=== PATIENT | male | born 1965 | race Caucasian/White ===

== ENCOUNTER 2016-12-03 10:47 | Emergency (ER) ==
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
[2016-12-03 11:24] VITALS: BP 181/110
[2016-12-03] MEDS ORDERED: PRINIVIL PO ONE (11:24)
[2016-12-03] MEDS ORDERED: DILANTIN PO ONE (11:24)
== END 2016-12-03 11:53 | disposition home or self-care (01) ==
LOC: ED 10:47
DX: Z48.01 Encounter for change or removal of surgical wound dressing (principal); I10 Essential (primary) hypertension; G40.909 Epilepsy, unspecified, not intractable, without status epilepticus; F17.210 Nicotine dependence, cigarettes, uncomplicated; S01.01XD Laceration without foreign body of scalp, subsequent encounter; V89.2XXD Person injured in unspecified motor-vehicle accident, traffic, subsequent encounter

== ENCOUNTER 2018-11-14 17:01 | Inpatient (IN) ==
--- NOTE | 2018-11-14 18:58 | PROVIDER DOCUMENTATION ---
This chart was entered by Gricel Hazel Scribe, acting as scribe for Yonis Tobar CRNP. HPI-Musculoskeletal Pain/Inj - GENERAL Chief Complaint: Back Pain Stated Complaint: EXTREMITY PAIN, NO BM Time Seen by Provider: 11/14/18 18:18 Source: patient - HX OF PRESENT ILLNESS-MUSKULOSKELTAL Nature of Presenting Problem: 52 yom presents to ed w/ back pain in lower back. pt is very yellow in complexion and eyes. pt has hx of seizures, and chronic lower back pain. 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 Major Childhood Illnesses: reports: denies history Cardiovascular: reports: denies history Respiratory: reports: denies history Gastrointestinal: reports: denies history Obstetrical/Gynecological: reports: denies history Genitourinary: reports: denies history Musculoskeletal: reports: chronic pain (lower back) Neurological: reports: Seizures/Epilepsy Endocrine/Immune: reports: denies history Other Conditions: reports: denies history - PRIOR SURGERIES/PROCEDURES Surgical/Procedure History: reports: none - IMMUNIZATION STATUS Childhood Immunizations: See Nurse Assessment Flu Vaccine: See Nurse Assessment - FAMILY HISTORY Family History: reviewed, not pertinent - SOCIAL HISTORY Smoking: cigarettes, greater than 1 pack/day Provider spent 3-5 mins advising pt. on dangers of tobacco.: Discussed manners to quit use, and f/u contacts for add'l counseling. Substance Use: none/never Physical Exam-Injury Related - Physical Exam-Injury Related Initial Vital Signs Reviewed: Yes General Appearance: appears well, alert, no apparent distress Eyes: PERRL/EOMI, scleral icterus. negative: pale conjunctivae, photophobia, sunken eyes Head, Ears, Nose, Mouth & Throat: normocephalic/atraumatic, moist mucous membranes, normal ENT inspection Neck: non-tender, full range of motion, supple, normal inspection Respiratory: chest non-tender, lungs clear, normal breath sounds Cardiovascular: normal peripheral pulses, regular rate, rhythm, no edema, no gallop, no JVD, no murmur Chest/Breast: deferred Abdominal Exam: normal bowel sounds, soft, tenderness (luq) Male Genitalia: deferred Rectal Exam: deferred Hemoccult Exam: deferred Lymphatic: no adenopathy Back Exam: CVA tenderness. negative: decreased range of motion, ecchymosis Extremity: normal range of motion, non-tender Integumentary: warm/dry, jaundice Neurologic: test development engineer II-XII nml as tested, grossly normal Psych/Mental Status: normal mood/affect, normal thought content, normal thought process, oriented x 3 Progress - PLAN OF CARE/RESULTS Progress/Plan/Lab Results: Vital Signs - 8 hr 11/14/18 17:18 11/14/18 18:47 Temperature 98 F 98.8 F Pulse Rate 103 H 97 H Respiratory Rate 18 16 Blood Pressure 118/80 141/67 O2 Sat by Pulse Oximetry 97 98 Laboratory Results - last 24 hr 11/14/18 11/14/18 11/14/18 18:43 18:43 18:43 WBC RBC Hgb Hct MCV MCH MCHC RDW Std Deviation Plt Count MPV Immature Gran % (Auto) Neut % (Auto) Lymph % (Auto) Mcmullen % (Auto) Eos % (Auto) Baso % (Auto) Immature Gran # (Auto) Neut # (Auto) Lymph # (Auto) Mcmullen # (Auto) Eos # (Auto) Baso # (Auto) Sodium 124 L Potassium 3.7 Chloride 74 L Carbon Dioxide 27 Anion Gap 23 BUN 13 Creatinine 0.7 Estimated GFR/1.73 m2 > 60 BUN/Creatinine Ratio 19 Glucose 73 Calculated Osmolality 248 Calcium 8.4 L Total Bilirubin 17.10 H AST 368 H ALT 96 H Alkaline Phosphatase 157 H Ammonia 61 H Creatine Kinase 133 Total Protein 7.0 Albumin 3.3 L Globulin 4.0 Albumin/Globulin Ratio 1.0 Lipase 38 11/14/18 19:14 WBC 7.63 RBC 3.65 L Hgb 12.8 L Hct 34.3 L MCV 94.0 MCH 35.1 H MCHC 37.3 H RDW Std Deviation 14.2 Plt Count 51 L MPV Not Reportable Immature Gran % (Auto) 0.5 Neut % (Auto) 81.3 H Lymph % (Auto) 6.7 L Mcmullen % (Auto) 11.4 H Eos % (Auto) 0.1 Baso % (Auto) 0.0 Immature Gran # (Auto) 0.04 Neut # (Auto) 6.20 Lymph # (Auto) 0.51 L Mcmullen # (Auto) 0.87 H Eos # (Auto) 0.01 Baso # (Auto) 0.00 Sodium Potassium Chloride Carbon Dioxide Anion Gap BUN Creatinine Estimated GFR/1.73 m2 BUN/Creatinine Ratio Glucose Calculated Osmolality Calcium Total Bilirubin AST ALT Alkaline Phosphatase Ammonia Creatine Kinase Total Protein Albumin Globulin Albumin/Globulin Ratio Lipase Orders Category Date Time Status Saline Loc NOW Care 11/14/18 18:33 Active NPO Diet 11/14/18 20:36 Active CHEST-PORTABLE [RAD] Stat Exams 11/14/18 20:18 Ordered LUMBAR SPINE [RAD] Stat Exams 11/14/18 18:34 Completed US ABDOMEN-COMPLETE [US] Stat Exams 11/14/18 20:34 Ordered ALCOHOL BLOOD Stat Lab 11/14/18 20:34 Ordered AMMONIA [CHEM] Stat Lab 11/14/18 18:43 Completed CBC WITH ELECTRONIC DIFF [HEME] Stat Lab 11/14/18 19:14 Completed CK PROFILE [SP CHEM] Stat Lab 11/14/18 18:43 Completed COMPREHENSIVE METABOLIC PANEL [CHEM] Stat Lab 11/14/18 18:43 Completed DIRECT BILIRUBIN [CHEM] Stat Lab 11/14/18 20:37 Ordered Dilantin [PHENYTOIN] [TDM] Stat Lab 11/14/18 20:28 Ordered HEPATITIS PROFILE [HH] Stat Lab 11/14/18 20:28 Ordered LIPASE [CHEM] Stat Lab 11/14/18 18:[address] W/POSS RFLX CULT [URINALYSIS] Stat Lab 11/14/18 20:00 Received EKG [EKG] Stat Ther 11/14/18 20:17 Ordered Discussed results and plan of care with patient. Patient agrees with plan and verbalizes understanding. Result Diagrams: 11/14/18 19:14 11/14/18 18:43 - XRAY 1 XRAY Study: Lumbar Spine ([facility] [address] [address], [address], [place] [address] Department of Imaging Patient: JASON RICCI Date: 11/14/18MR#: [id number] : 1965ADM Status: REG ERAcct#: [id number] Age /Sex: 52/MRoom/Bed: Loc: P.ED Ordering Physician: Yonis Tobar Family Physician: None,PCP Reason for Procedure: pain Signed EXAM: LUMBAR SPINE 11/14/2018 HISTORY: pain TECHNIQUE: Lumbosacral spine with obliques six views COMMENT: There is curvature of the lumbar spine with convexity to the right. There is are osteophytes at multiple levels. The pedicles are intact. There is vacuum disc phenomenon at multiple levels and there is some loss of height anteriorly of the L2 vertebral body but this was also present on 04/03/2017. L5 is partially sacralized on the left. IMPRESSION : Degenerative disc changes. No evidence of acute bony disease. Electronically signed by Aris Joyce 11/14/2018 7:08 PM [id number] Interpreting Physician: Aris Joyce MD Dictated Date/Time: 1905 cc: Yonis Tobar; None,PCP) XRAY Interpretation: See note - CONSULTS/PCP/HOSPITALIST Notification #1 *Consult/PCP/Hospitalist*: Dr. Jackson Time Discussed: 20:31 Reason/Comments: Admit Consult Disposition: Admit Departure - Departure Date of Disposition Decision: 11/14/18 Time of Disposition Decision: 20:25 DIAGNOSIS: Elevated bilirubin, Jaundice, Thrombocytopenia, Elevated liver enzymes, Increased ammonia level, Hyponatremia Back pain Qualifiers: Back pain location: low back pain Chronicity: chronic Back pain laterality: unspecified Sciatica presence: without sciatica Qualified Code(s): M54.5 - Low back pain; G89.29 - Other chronic pain Disposition: ADMITTED INPATIENT 09 Certified Medical Emergency: Emergent Condition: Stable Referrals and Follow-Ups: None,PCP [Primary Care Provider] - - Critical Care Note This patient required my direct & personal management of CC.: Yes Total Time (mins): 45 Critical Care Statement: This patient required my direct personal management to treat or rule out processes, the absence of which, could potentiallly result in sudden, clinically significant life or limb threatening deterioration. Attestation - Physician/ FELICE Attestation Patient care was provided by Advanced Practice Provider:: Yes Advanced Practice Provider:: Ynois Tobar Advanced Practice Provider documentation review:: The Mid-level provider documentation, treatment plan and medical decision making was reviewed by the physician who agrees with all treatment and medical decision making by the MLP. The physician spent face to face time with patient:: No Advanced Practice Provider documentation review:: Supervising physician onsite and consulted in the evaluation and care of this patient. The physician did not have a face to face encounter with the patient. This chart was documented by the indicated scribe, (Gricel Hazel Scribe) and accurately reflects the services I performed and decisions made by me, Yonis Tobar CRNP, as attested by the provider's signature.
--- NOTE | 2018-11-14 19:10 | Diag Imaging Result Doc PS360 ---
EXAM: LUMBAR SPINE 11/14/2018 HISTORY: pain TECHNIQUE: Lumbosacral spine with obliques six views COMMENT: There is curvature of the lumbar spine with convexity to the right. There is are osteophytes at multiple levels. The pedicles are intact. There is vacuum disc phenomenon at multiple levels and there is some loss of height anteriorly of the L2 vertebral body but this was also present on 04/03/2017. L5 is partially sacralized on the left. IMPRESSION: Degenerative disc changes. No evidence of acute bony disease. Electronically signed by Aris Joyce 11/14/2018 7:08 PM
[2018-11-14 19:11] LABS: ESTIMATED GFR > 60
[2018-11-14 19:13] LABS: AGAP 23; ALBUMIN 3.3 g/dL (3.5-5.0); ALKALINE PHOSPHATASE 157 U/L (32-122); BUN 13 mg/dL (8-22); CALCIUM 8.4 mg/dL (8.8-10.2); CHLORIDE 74 mmol/L (98-107); CK PROFILE 133 U/L (24-204); COSMO 248; CREATININE 0.7 mg/dL (0.7-1.2); GLUCOSE 73 mg/dL (70-104); GOT 368 U/L (10-34); GPT 96 U/L (10-44); POTASSIUM 3.7 mmol/L (3.5-5.1); SODIUM 124 mmol/L (136-145); TCO2 27 mmol/L (25-35)
[2018-11-14 19:29] LABS: EOS# 0.01 X1000 (0.0-0.7); EOS% 0.1 % (0.0-10.0); HEMATOCRIT 34.3 % (42.0-52.0); HEMOGLOBIN 12.8 g/dL (14.0-18.0); IMM GRAN# 0.04 X1000 (0.0-0.04); IMM GRAN% 0.5 % (0.0-0.5); LYMPH# 0.51 X1000 (1.2-3.4); LYMPH% 6.7 % (20.5-51.1); MCH 35.1 PG (27-31); MCHC 37.3 g/dL (33-37); MONO# 0.87 X1000 (0.11-0.59); MONO% 11.4 % (1.7-9.3); NEUT% 81.3 % (42.2-75.2); PLT 51 X1000 (130-400); RBC 3.65 XMIL (4.7-6.1); RDW 14.2 % (11.5-14.5); WBC 7.63 X1000 (4.8-10.8)
[2018-11-14] MEDS ORDERED: NORCO-7.5 PO ONE (20:50)
[2018-11-14] MEDS ORDERED: NS 1,000 ML IV ONE (20:51)
[2018-11-14] MEDS ORDERED: ZOFRAN IV PRN (20:51)
[2018-11-14] MEDS ORDERED: MORPHINE IV PRN (20:51)
[2018-11-14 20:56] LABS: BILIRUBIN URINE 3+ (NEGATIVE); BLOOD URINE 1+ (NEGATIVE); COLOR AMBER; GLUCOSE URINE NEGATIVE (NEGATIVE); KETONE URINE TRACE mg/dL (NEGATIVE); LEUKOCYTES URINE 1+ (NEGATIVE); NITRITE URINE POSITIVE (NEGATIVE); PROTEIN URINE 1+(30 mg/dL) mg/dL (NEGATIVE); SP GRAVITY URINE 1.015; UROBILINOGEN URINE 4 mg/dL
[2018-11-14 20:58] LABS: URINE BACTERIA 1+ /HFP; URINE CAST NONE SEEN /LPF; URINE CRYSTAL NONE SEEN /HPF; URINE EPITHELIAL CELLS >10 /HPF (<10); URINE RBC <10 /HPF (<10); URINE SMALL ROUND CELLS TRANSITIONAL PRESENT; URINE WBC <10 /HPF (<10); URINE YEAST NONE SEEN /HPF
[2018-11-14 20:59] LABS: URINE SOURCE CLEAN CATCH
[2018-11-14 21:00] LABS: CLARITY VERY CLOUDY (CLEAR)
--- NOTE | 2018-11-14 21:06 | ED EKG INTERP ---
This chart was entered by Gricel Hazel Scribe, acting as scribe for Yonis Tobar CRNP. EKG Interpretation - EKG Time of EKG reading by physician:: 20:27 EKG Read and Signed by:: Yonis Tobar EKG Interpretation (*Must complete 3 of following elements*): Normal Rate: 88 Rhythm: normal sinus rhythm Henry: normal QRS: normal CA Interval: normal ST Wave: non-specific ST changes Attestation - Physician/ FELICE Attestation Patient care was provided by Advanced Practice Provider:: Yes Advanced Practice Provider:: Yonis Tobar Advanced Practice Provider documentation review:: The Mid-level provider documentation, treatment plan and medical decision making was reviewed by the physician who agrees with all treatment and medical decision making by the MLP. The physician spent face to face time with patient:: No Advanced Practice Provider documentation review:: Supervising physician onsite and consulted in the evaluation and care of this patient. The physician did not have a face to face encounter with the patient. This chart was documented by the indicated scribe, (Gricel Hazel Scribe) and accurately reflects the services I performed and decisions made by , Yonis Tobar CRNP, as attested by the provider's signature.
--- NOTE | 2018-11-14 21:47 | Diag Imaging Result Doc PS360 ---
EXAM: US ABDOMEN-COMPLETE 11/14/2018 HISTORY: abd pain TECHNIQUE: Abdominal ultrasound COMMENT: The liver is hyperechoic. The pancreas is obscured. There is sludge in the gallbladder. No pericholecystic fluid is present and there are no definite stones. There is no evidence of biliary dilatation the common bile duct measuring less than 5 mm. There is apparently pulsatile flow in the portal vein. The kidneys are without evidence of hydronephrosis or mass. The spleen is enlarged measuring over 14 cm. The aorta and inferior vena cava are not well demonstrated. There is no sonographic [place] sign. IMPRESSION: Probable cirrhosis with portal hypertension and splenomegaly. Sludge in the gallbladder. Electronically signed by Aris Joyce 11/14/2018 9:45 PM
--- NOTE | 2018-11-14 21:56 | Diag Imaging Result Doc PS360 ---
EXAM: CT ABD/PELVIS W/IV CONT ONLY 11/14/2018 HISTORY: elevated bilirubin TECHNIQUE: This exam was performed using automated exposure control, adjustment of mA or kV according to patient size, and/or use of iterative reconstruction technique. COMMENT: There is no evidence of acute disease in the visualized portion of the chest. The liver is enlarged and hypodense with some inhomogeneity. There is lobulation of the surface of the liver. The spleen is not enlarged. The adrenal glands are not enlarged. There is a splenule near the splenic hilus. The pancreas is not enlarged. There is periaortic celiac and periportal adenopathy with a periportal node measuring in excess of 19 mm. There are some apparent gastric varices. There are scattered colonic diverticula. There is some questionable mucosal thickening in the transverse colon. Small bowel is not distended. Pelvis: There are perirectal varices. There is sigmoid diverticulosis without evidence of acute diverticulitis. The appendix is not distended. There is free fluid in the rectovesical pouch. There is a right inguinal hernia containing a loop of small bowel. There is a fat-containing left inguinal hernia. There are degenerative changes in the lumbar spine. IMPRESSION: 1. Hepatomegaly with steatohepatitis versus cirrhosis. Adenopathy. Varices. Minimal ascites. No evidence of biliary obstruction. 2. Right inguinal hernia. 3. Diverticulosis coli. Electronically signed by Aris Joyce 11/14/2018 9:54 PM
--- NOTE | 2018-11-14 22:07 | EKG Report ---
Test Performed on : 11/14/2018 8:27:17 PM Test Reason : SDA Blood Pressure : / mmHG Vent. Rate : 088 BPM Atrial Rate : 088 BPM P-R Int : 136 ms QRS Dur : 086 ms QT Int : 388 ms P-R-T Axes : 065 037 062 degrees QTc Int : 469 ms Normal sinus rhythm. Possible Left atrial enlargement Borderline ECG No previous ECGs available Unconfirmed Result
[2018-11-15] MEDS: MORPHINE IV PRN ×5 (03:17→17:03)
[2018-11-15 06:36] LABS: AGAP 15; ALKALINE PHOSPHATASE 143 U/L (32-122); BUN 14 mg/dL (8-22); CHLORIDE 80 mmol/L (98-107); COSMO 248; CREATININE 0.5 mg/dL (0.7-1.2); DIRECT BILIRUBIN > 10.00 mg/dL (0.00-0.20); ESTIMATED GFR > 60; GLUCOSE 69 mg/dL (70-104); GOT 332 U/L (10-34); GPT 86 U/L (10-44); POTASSIUM 3.9 mmol/L (3.5-5.1); SODIUM 124 mmol/L (136-145); TCO2 29 mmol/L (25-35); TOTAL PROTEIN 6.4 g/dL (6.3-8.3)
--- NOTE | 2018-11-15 07:05 | Diag Imaging Result Doc PS360 ---
EXAM: CHEST-PORTABLE - 11/14/2018 HISTORY: admit TECHNIQUE: Portable chest COMPARISON: 11/17/2016 FINDINGS: Heart size is normal. The lungs appear clear. There is no pleural effusion or pneumothorax identified. IMPRESSION: No evidence of acute disease. Electronically signed by Fuad Felipe 11/15/2018 7:03 AM
[2018-11-15 11:08] LABS: INR 1.21; PROTIME 15.9 Seconds (11.0-16.0)
[2018-11-15 11:09] LABS: PTT 37.1 Seconds (22.3-41.8)
[2018-11-15] MEDS ORDERED: D5 NS 1,000 ML IV SCH (11:45)
[2018-11-15] MEDS ORDERED: LACTULOSE PO SCH (12:00)
[2018-11-15] MEDS: ZOSYN 3.375 GM in NS 50 ML IV SCH ×5 (13:36→23:42)
[2018-11-15] MEDS ORDERED: MORPHINE IV PRN (19:27)
[2018-11-15] MEDS: LACTULOSE PO SCH ×2 (19:40→23:15)
[2018-11-15] MEDS: KEPPRA PO SCH ×2 (19:41→23:15)
--- NOTE | 2018-11-15 23:10 | HISTORY AND PHYSICAL ---
CHIEF COMPLAINT: back pain. HISTORY OF PRESENT ILLNESS: This is a 52-year-old gentleman with a history of seizures and chronic low back pain. He presented to the emergency room complaining of increasing back pain needing pain medications. On exam skin and sclerae are jaundiced. His workup revealed a total bilirubin of 17, direct bilirubin greater than 10 with AST 368, ALT 96, as well as ammonia of [address] of the abdomen and pelvis revealed steatohepatitis versus cirrhosis, adenopathy, varices, gastric and perirectal had no evidence of biliary obstruction. Abdominal ultrasound revealed probable cirrhosis with portal hypertension and splenomegaly. The patient denies any history of liver disease. He states he was not aware that he was jaundiced, nor had anyone mentioned this to him. PAST MEDICAL HISTORY: Seizures, chronic back pain. PAST SURGICAL HISTORY: Denies. SOCIAL HISTORY: Smokes a pack a day. He drinks 2 to 3 beers a day. He denies illicit drug use. ALLERGIES: No known drug allergies. HOME MEDICATIONS: None. REVIEW OF SYSTEMS: Discussed with patient with pertinent positives stated in the HPI. He denied any syncope, dizziness, chest pain, palpitations, any shortness of breath, cough, fever, chills, any night sweats, persistent cough, any nausea, vomiting, diarrhea, constipation , any black or bloody vomitus or stools, hematuria, dysuria, frequency urgency. PHYSICAL EXAMINATION: GENERAL: This is a 52-year-old gentleman who is actually walking around the room in no distress. VITAL SIGNS: Blood pressure is 123/63 with a heart rate of 87, respirations are 18, temperature is 98.1 degrees oral, room air saturations are 98 to 100 percent. HEENT: Pupils are equal, round, react to light. EOMs are intact. Sclerae are icteric. Head is normocephalic, atraumatic. Mucous membranes are moist. NECK: Supple with trachea midline. CARDIOVASCULAR: Regular rate and rhythm. S1 and S2 appreciated. He has no lower extremity edema. Peripheral pulses are palpable x4 extremities. PULMONARY: Breath sounds are clear with no increased work of breathing noted. Chest rises and falls symmetric with respiration. ABDOMEN: Distended. It is nontender with organomegaly felt right upper quadrant. He is noted to have asterixis with right hand greater than left. SKIN: Warm and dry, jaundice. LABS: WBC is 7.6 with hemoglobin 12.8, hematocrit 34.3 and platelets of 51, 000. His sodium is 124 with potassium 3.7, BUN is 13 with a creatinine 0.7, total bilirubin is 17 with direct bilirubin greater than 10, AST 368, ALT 96, alkaline phosphatase is 157, his ammonia level 61. Blood alcohol is 50. Abdominal ultrasound revealed probable cirrhosis with portal hypertension and splenomegaly. Abdominal CT revealed hepatomegaly with steatohepatitis versus cirrhosis, adenopathy, gastric and perirectal varices. No evidence of biliary obstruction, right inguinal hernia and diverticulosis. Chest x-ray revealed no evidence of acute disease. ASSESSMENT AND PLAN: This is a 52-year-old gentleman who is sitting up at the bedside in no distress. 1. Low back pain, chronic. 2. Elevated liver enzymes. 3. Elevated bilirubin. 4. Elevated ammonia. 5. Hyponatremia. PLAN: He has been admitted to the medical-surgical floor at [facility] and placed on telemetry which will continue. He has been NPO. blood sugars have been 73 and 69, will start IV fluids of D5 normal saline. We will monitor for sepsis given low blood sugars in the setting of liver failure. Will repeat an ammonia level as well as CBC and CMP. Start lactulose, blood cultures, urine cultures have been obtained, we will start Zosyn q.6 hours. I did discuss the patient with Dr. Montilla in Gastroenterology who reviewed orders and also added a CA 19-9 with his lab work. We will transfer the patient to [facility] for GI following. Further treatments pending hospital course. Dictated by VIPIN Wade for Mark Jackson MD This chart was documented by, VIPIN Wade and accurately reflects the services performed, treatment plan and medical decisions as attested by the providers signature Mark Jackson MD. cc: VIPIN Wade MD [facility]
[2018-11-15] MEDS: D5 NS 1,000 ML IV SCH ×2 (23:15→23:42)
[2018-11-15] MEDS: ATIVAN IV PRN (23:42)
--- NOTE | 2018-11-16 02:42 | HISTORY AND PHYSICAL ---
ADDENDUM: Patient seen and examined by myself. He is noted to have hyponatremia. He has cirrhosis of undetermined age or cause. The patient has not really been following up with anyone. Denies any knowledge of liver damage. He has marked hyperbilirubinemia. He is admitted to [place] waiting for a bed to be transferred to [facility] for GI. Unfortunately, currently there are no beds available at [facility], [place], [place], [place] or [facility]. cc: Mark Jackson MD
[2018-11-16] MEDS: MORPHINE IV PRN ×5 (04:08→23:29)
[2018-11-16] MEDS: ZOSYN 3.375 GM in NS 50 ML IV SCH ×3 (05:31→18:05)
[2018-11-16] MEDS: ATIVAN IV PRN (06:13)
[2018-11-16 06:34] LABS: HEMOGLOBIN 11.7 g/dL (14.0-18.0); MCH 35.6 PG (27-31); MCHC 35.5 g/dL (33-37); MCV 100.3 FL (81-99); MPV 12.8 FL (7.4-10.4); RBC 3.29 XMIL (4.7-6.1); RDW 14.7 % (11.5-14.5); WBC 5.28 X1000 (4.8-10.8)
[2018-11-16 06:49] LABS: MAGNESIUM 1.6 mg/dL (1.5-2.7); PHOSPHORUS 1.3 mg/dL (2.7-4.5)
[2018-11-16 06:53] LABS: AGAP 15; ALB/GLOB RATIO 0.9; ALKALINE PHOSPHATASE 129 U/L (32-122); BUN 15 mg/dL (8-22); CALCIUM 7.8 mg/dL (8.8-10.2); CHLORIDE 87 mmol/L (98-107); COSMO 264; CREATININE 0.7 mg/dL (0.7-1.2); ESTIMATED GFR > 60; GLUCOSE 107 mg/dL (70-104); GOT 295 U/L (10-34); GPT 77 U/L (10-44); SODIUM 131 mmol/L (136-145); TCO2 29 mmol/L (25-35); TOTAL PROTEIN 6.2 g/dL (6.3-8.3)
[2018-11-16 06:59] LABS: TOTAL BILIRUBIN 16.02 mg/dL (0.20-1.00)
[2018-11-16] MEDS: LACTULOSE PO SCH ×2 (09:59→22:03)
[2018-11-16] MEDS: KEPPRA PO SCH ×2 (09:59→22:03)
[2018-11-16 15:09] LABS: TOTAL IRON 114 ug/dL (53-167)
[2018-11-16] MEDS: M.V.I.-12 10 ML, FOLIC ACID 1 MG, MAGNESIUM SULFATE 1 GM, THIAMINE 100 MG in NS 1,000 ML IV SCH (15:10)
[2018-11-16] MEDS: PROTONIX IV SCH (15:10)
[2018-11-16] MEDS: THIAMINE 100 MG in NS 50 ML IV SCH (15:10)
[2018-11-16] MEDS ORDERED: POTASSIUM PHOSPHATE 30 MMOL in NS 250 ML IV ONE (15:18)
[2018-11-16 15:20] LABS: UNBOUND IRON 1 ug/dL (112-346)
[2018-11-16 16:05] LABS: IRON SATURATION 99 %; TIBC 115 ug/dL
[2018-11-16] MEDS: LIBRIUM PO SCH ×2 (18:05→22:03)
[2018-11-16] MEDS: ZOFRAN IV PRN (23:36)
[2018-11-17] MEDS: PROTONIX IV SCH ×2 (01:05→13:14)
[2018-11-17] MEDS: ZOSYN 3.375 GM in NS 50 ML IV SCH ×5 (01:05→23:58)
[2018-11-17] MEDS: SODIUM CHLORIDE 0.9% INJ SCH ×2 (01:05→13:14)
[2018-11-17] MEDS: D5 NS 1,000 ML IV SCH ×3 (01:05→04:52)
--- NOTE | 2018-11-17 01:07 | PROGRESS NOTE ---
DATE: 11/16/2018 SUBJECTIVE: Patient is lying comfortably in bed, he is confused. He is likely encephalopathic. So far 1 bowel movement today but if I do not have 2 or 3 bowel more bowel movements likely I will increase the dose of the lactulose. He is oriented to person. He knows he is in [place], he knows this is the hospital, he does not remember the name of the hospital though, he is not oriented to time and for him the President is Domenic. OBJECTIVE: Vital Signs: Temperature 98.1 degrees, pulse 79, respiratory rate 20, blood pressure 124/78, oxygen saturation 98 on room air. HEENT: Head normocephalic. No trauma. PERRLA. Icteric sclerae. Neck: Supple. No JVD. Central trachea. Chest: Clear to auscultation. No wheezing, no rales. Abdomen: Soft, protuberant, mild to moderately distended, positive bowel sounds, possible ascites. Extremities: No edema, no clubbing, no cyanosis. Neurological: The patient is alert and oriented x1 to person, he knows he is in the hospital, he does not remember what kind of hospital this is, he is able to recognize family members at the bedside. He is following commands on and off, he is not answering some of my simple questions. LABORATORY: WBC 5.2, hemoglobin 11.7, hematocrit 33, platelets 49,000, sodium 131, potassium 3, chloride 87, bicarbonate 15, BUN 0.7, glucose 107, calcium 7.8, phosphorus 1.3. ASSESSMENT AND PLAN: 1. Likely hepatic encephalopathy, as per the brother he has been more sleepy at home than normal and he has been confused, this patient is a heavy drinker even though he states that he drinks every were from 2 to 3 beers the brother said at the bedside he drinks way more than that, not only beers but also vodka, his brother has been living with him for about 5 years and since then the patient has been drinking heavily, at this moment his skin is jaundiced, his bilirubin is elevated at 16 with the AST, ALT and alkaline phosphatase are elevated as well coma, ammonia level is high and he is thrombocytopenic, likely this patient has liver cirrhosis. 2. Possible liver cirrhosis, we will also ask for more lab work to rule out any other condition including hepatitis, likely this is an alcoholic liver cirrhosis but I will wait for the evaluation and recommendations of Gastroenterology Department. 3. Thrombocytopenia likely secondary to liver injury. 4. Chronic low back pain, apparently as per the brother he has some degenerative disease, he has been placed on morphine as needed which I will decrease from 2 mg q.4 hours to 1 mg q.4 hours. 5. Elevated liver enzymes as per #1. 6. Elevated bilirubin as per #1. 7. Elevated ammonia likely secondary to liver cirrhosis. Continue with lactulose, so far 1 bowel movement. 8. Hyponatremia getting better. Continue with same management. 9. Hypokalemia. I will replace the potassium. 10. Hypophosphatemia. We will replace the phosphorus. cc: Oleg Lorenzana MD
[2018-11-17] MEDS: LIBRIUM PO SCH ×4 (03:36→20:14)
[2018-11-17] MEDS: MORPHINE IV PRN ×3 (03:36→20:13)
[2018-11-17] MEDS: ZOFRAN IV PRN ×2 (03:36→20:14)
[2018-11-17] MEDS: ATIVAN IV PRN ×4 (04:28→22:36)
--- NOTE | 2018-11-17 06:17 | GASTROENTEROLOGY CONSULTATION ---
DATE: 11/16/2018 ATTENDING PHYSICIAN: Dr. Valladares. PRIMARY CARE DOCTOR: None. REASON FOR CONSULTATION: Jaundice. HISTORY OF PRESENT ILLNESS: Mr. Osorio is a 52-year-old male who was admitted on 11/14/2018 to [facility] for back pain. He had labs and imaging done which showed evidence of jaundice with a total bilirubin of 17 and elevated liver enzymes. He had elevated ammonia level and he also had a blood alcohol level of 50. He had imaging done in the form of CT of the abdomen and pelvis which showed: 1. Hepatomegaly with steatohepatitis versus cirrhosis. 2. Adenopathy in the periportal area and paraaortic/celiac area with largest periportal node measuring 19 mm. 3. Minimal ascites. 4. No evidence of biliary obstruction. 5. Right-sided inguinal hernia. 6. Diverticulosis coli. 7. Perirectal varices. 8. Degenerate changes in the lumbar spine. The patient was then transferred to [facility]. I saw the patient. The patient acknowledges drinking about 4 to 6 beers a day, doing it for more than 15 years. His last drink was on the day before admission. He denies any vomiting blood or passing blood in the stools. He denies any previous history of liver disease. He denies any family history of liver disease. He has not seen a physician for a while. PAST MEDICAL HISTORY: Seizures, chronic back pain, alcoholism. PAST SURGICAL HISTORY: None. SOCIAL HISTORY: He smokes more than 1 pack a day, has done it for more than 2 decades. Drinks about 4 to 6 beers a day for more than 15 years. He denies any illicit drug abuse. He lives with his brother. ALLERGIES: No known drug allergies. MEDICATIONS IN THE HOSPITAL: Include multivitamin once daily, Librium 25 mg p.o. q.6 hours, dextrose normal saline at 75 mL per hour, lactulose 30 mL p.o. b.i.d., Keppra, Ativan, morphine, Zofran, Protonix IV b.i.d., Zosyn, potassium phosphate, and thiamine 100 mg IV once daily. He has currently NPO. REVIEW OF SYSTEMS: He denies any current fevers, rigors, chills, chest pain, shortness of breath, or dyspnea. He denies any vomiting blood or passing blood in the stools. He does complain of back pain. PHYSICAL EXAMINATION: Vital Signs: Temperature 98.6 degrees, pulse rate of 84, respiratory rate of 15, blood pressure 120/76, saturating 98% on room air. Body weight of 155 pounds 4 ounces. BMI 24.3 kg/m2. General Appearance: This is a moderately built, moderately nourished, lying in bed, in no acute distress. HEENT: Pale conjunctivae. Icteric sclerae. Pupils equal, reactive to light. Neck: Supple. Abdomen: Protuberant. Tympanic on percussion. No rebound. No guarding. Mild discomfort in the epigastric region. Extremities: No cyanosis, clubbing, and he has mild lower extremity edema noted. Neurologic: He is awake, alert, and oriented x3. LABS: Hemoglobin and hematocrit of 11.7 and 33, white count of 5.28, platelet count of 49,000, MCV of 100.3. Sodium of 139, potassium 3, chloride of 87, bicarb 29, anion gap 13, BUN of 15, creatinine 0.7, glucose of 107, calcium 7.8, phosphorus 1.3, magnesium 1.6. Total bilirubin is 16.02, direct of more than 10, AST 295, ALT 77, alkaline phosphatase is 129, total protein is 6.2, albumin of 3, ammonia of 62, lipase of 38. Iron level of 114. Urinalysis showed cloudy, 1+ protein, 1+ blood, 3+ bilirubin, 1+ white cells, more than 10 epithelial cells. Tylenol level is 1.9. Phenytoin level of 0.8. Blood alcohol of 50. Blood cultures x2 are currently pending. Urine culture showed no growth. Imaging in the form of CT scan as described in the HPI. Abdominal ultrasound done which showed liver is hyperechoic. Sludge in the gallbladder. No evidence of biliary dilation. Common bile duct measuring 5 mm. Spleen is measuring 14 cm. IMPRESSION AND PLAN: 1. Elevated liver enzymes and jaundice. 2. History of alcoholism. 3. Anemia. 4. Thrombocytopenia. 5. Elevated ammonia level. 6. Electrolyte imbalance. 7. Back pain. 8. Diverticulosis of the colon. RECOMMENDATIONS: 1. We will check on chronic liver disease workup. It is very likely his elevated liver enzymes and jaundice are secondary to alcoholic liver disease. We will continue to watch his liver enzymes. We will also watch his blood counts including platelet count. We will give him a dose of vitamin K. His INR is around 1.2. We will watch him for delirium tremens. We will continue multivitamin, thiamine, banana bag. 2. Gastrointestinal prophylaxis with PPIs b.i.d. 3. The patient was counseled to quit alcohol completely. The patient was also counseled to quit smoking completely. 4. The above plan was discussed with the patient and all questions were answered. Please call us with any further questions. cc: MD Oleg Salter MD
[2018-11-17 06:54] LABS: BASO# 0.01 X1000 (0.0-0.2); BASO% 0.2 % (0.0-0.8); EOS# 0.04 X1000 (0.0-0.7); EOS% 0.7 % (0.0-10.0); HEMATOCRIT 35.1 % (42.0-52.0); HEMOGLOBIN 12.1 g/dL (14.0-18.0); IMM GRAN# 0.05 X1000 (0.0-0.04); IMM GRAN% 0.9 % (0.0-0.5); LYMPH# 0.62 X1000 (1.2-3.4); LYMPH% 11.3 % (20.5-51.1); MCHC 34.5 g/dL (33-37); MCV 101.4 FL (81-99); MONO# 0.96 X1000 (0.11-0.59); MONO% 17.5 % (1.7-9.3); MPV 12.7 FL (7.4-10.4); NEUT# 3.81 X1000 (1.4-6.5); NEUT% 69.4 % (42.2-75.2); PLT 65 X1000 (130-400); RBC 3.46 XMIL (4.7-6.1); RDW 15.3 % (11.5-14.5); WBC 5.49 X1000 (4.8-10.8)
[2018-11-17 07:26] LABS: AGAP 15; ALB/GLOB RATIO 1.1; ALKALINE PHOSPHATASE 121 U/L (32-122); BUN 11 mg/dL (8-22); CALCIUM 7.4 mg/dL (8.8-10.2); CHLORIDE 94 mmol/L (98-107); COSMO 275; CREATININE 0.4 mg/dL (0.7-1.2); ESTIMATED GFR > 60; GLUCOSE 96 mg/dL (70-104); GOT 299 U/L (10-34); GPT 79 U/L (10-44); POTASSIUM 3.2 mmol/L (3.5-5.1); SODIUM 138 mmol/L (136-145); TCO2 29 mmol/L (25-35); TOTAL PROTEIN 5.7 g/dL (6.3-8.3)
[2018-11-17 07:27] LABS: TOTAL BILIRUBIN 17.87 mg/dL (0.20-1.00)
[2018-11-17] MEDS: LACTULOSE PO SCH ×2 (09:05→17:48)
[2018-11-17] MEDS: KEPPRA PO SCH ×2 (09:06→20:13)
[2018-11-17] MEDS ORDERED: KLOR-CON PO ONE (11:01)
[2018-11-17 12:40] LABS: HEPATITIS PROFILE ACUTE SEE COMMENTS
[2018-11-17] MEDS ORDERED: LACTULOSE PO SCH (13:00)
--- NOTE | 2018-11-17 14:26 | PROGRESS NOTE ---
DATE: 11/17/2018 SUBJECTIVE: This patient is lying comfortably in bed, he is sleepy, but arousable. He is answering some of my questions but slow. He seems to be more oriented today. So far he has been having a couple bowel movement for the past 2 days. I do not have a record of any bowel movement today, I have increased the dose of the lactulose from twice a day to 3 times a day. He has been placed on a liquid diet and I instructed the nurse to give him some food only if he is awake, we will try some ice chips first. We will continue with Librium which we will decrease slowly. OBJECTIVE: Vital signs: Temperature 97.8 degrees, pulse 79, respiratory rate 16, blood pressure 110/83, oxygen saturation 99 on room air. HEENT: Head normocephalic. No trauma. PERRLA. Icteric sclerae. Neck: Supple. No JVD. Central trachea. Chest: Clear to auscultation. No wheezing, no rales. Abdomen: Soft, protuberant, mild to moderate distended, positive bowel sounds, possible ascites. Extremities: No edema, no clubbing, no cyanosis. Neurological: The patient is alert, he is oriented x2 today, he knows he is in the hospital. He does not remember the name of this hospital though, he believes this is [facility]. He is following commands more consistently today. LABORATORY: WBC 5.4, hemoglobin 12.1, hematocrit 35.1, platelets 65,000, sodium 138, potassium 3.2, chloride 94, bicarbonate 11, BUN 0.4, glucose 96, calcium 7.4, bilirubin 17.8, AST 299, ALT 79, alkaline phosphatase 121, albumin 3. ASSESSMENT AND PLAN: 1. Likely hepatic encephalopathy, as per the patient's brother he is a heavy drinker, he not only drinking beer but also other drinks like vodka, as per the brother he has been living with him for the past 5 years and since then he has been drinking heavily daily. His skin is jaundiced. His bilirubin is elevated as well as the AST, ALT, ammonia level is been high and he is thrombocytopenic. 2. Alcoholic hepatitis with possible liver cirrhosis. Will continue to monitor. Continue with same management. He is getting IV fluids especially a banana bag, gastroenterology on board. 3. Thrombocytopenia likely secondary to liver injury. 4. Chronic low back pain. Apparently as per the brother he has some degenerative disease. He has been placed on morphine as needed. 5. Elevated liver enzymes aware. 6. Elevated bilirubin aware. 7. Elevated ammonia aware. 8. Hyponatremia resolved. 9. Hypokalemia. I will replace the potassium today. cc: Oleg Lorenzana MD
[2018-11-17] MEDS: M.V.I.-12 10 ML, FOLIC ACID 1 MG, MAGNESIUM SULFATE 1 GM, THIAMINE 100 MG in NS 1,000 ML IV SCH (17:44)
[2018-11-17] MEDS: THIAMINE 100 MG in NS 50 ML IV SCH (17:44)
[2018-11-17] MEDS: TRENTAL PO SCH (17:52)
--- NOTE | 2018-11-17 17:57 | GASTROENTEROLOGY PROGRESS NOTE ---
DATE: 11/17/2018 Resting in bed. He is feeling the same. He denies any new complaints. He denies any nausea, vomiting, vomiting blood or passing blood in the stools. He is eating well.Vitals: Temperature 99 degrees, pulse of 89, respiratory 16, blood pressure 122/82 saturating 100% room air. General Appearance: Moderately nourished lying in bed in no acute distress. HEENT: Icteric sclerae, icteric skin, positive mild pallor. Neck: Is supple. Abdomen: Distention likely positive ascites. No rebound, guarding. Extremities: No cyanosis, clubbing . Neuro: He was sleepy was able to awake on commands and answer questions. LABS: His hemoglobin and hematocrit is 12.1 and 35.1, white count of 5.49, platelet count of 65,000, sodium 130, potassium 3.2, chloride 94, bicarb 20, anion gap 15, BUN of 11, creatinine 0.4, glucose of 210, calcium 74, total bilirubin 17.87 and AST 299, ALT 79, alkaline phosphatase 121, total protein 5.7, albumin of 3. His ammonia was 62 yesterday, CA-19-9 was 693 which is high. Hepatitis panel show positive hepatitis C antibody with the PCR is pending. IMPRESSION AND PLAN: 1. Alcoholic hepatitis. We will continue with current treatment, will continue follow liver enzymes. Will start on pentoxifylline 400 mg p.o. t.i.d. 2. Elevated CA 99. He will benefit from MRI of the abdomen and MRCP to evaluate pancreatic malignancy. 3. Hepatic encephalopathy with elevated ammonia. He will continue lactulose, will increase the lactulose 4 times daily. 4. Thrombocytopenia, continue follow for now. 5. Chronic back pain aware. 6. Electrolyte imbalance aware, will continue to watch that for now. 7. Gastrointestinal prophylaxis PPIs. 8. Will follow up on the chronic liver disease workup. 9. Continue to watch closely for alcohol withdrawal. Patient has a drinking history of heavy alcohol use. I counseled patient to quit alcohol completely and also counseled him to quit smoking completely. 10. The above plans with the patient and all questions answered. Please call us with any further questions. cc: Oleg Lorenzana MD
[2018-11-18] MEDS: LIBRIUM PO SCH ×4 (00:54→20:03)
[2018-11-18] MEDS: SODIUM CHLORIDE 0.9% INJ SCH ×2 (01:26→14:21)
[2018-11-18] MEDS: PROTONIX IV SCH ×2 (01:26→14:21)
[2018-11-18] MEDS: MORPHINE IV PRN ×3 (01:52→15:25)
[2018-11-18] MEDS: D5 NS 1,000 ML IV SCH ×3 (03:24→20:04)
[2018-11-18] MEDS: ZOSYN 3.375 GM in NS 50 ML IV SCH ×3 (05:55→20:04)
[2018-11-18 06:43] LABS: INR 1.29; PROTIME 17.1 Seconds (11.0-16.0)
[2018-11-18 06:44] LABS: PTT 40.9 Seconds (22.3-41.8)
[2018-11-18 06:52] LABS: BASO# 0.02 X1000 (0.0-0.2); BASO% 0.3 % (0.0-0.8); EOS# 0.05 X1000 (0.0-0.7); EOS% 0.8 % (0.0-10.0); HEMATOCRIT 32.1 % (42.0-52.0); HEMOGLOBIN 11.1 g/dL (14.0-18.0); IMM GRAN# 0.09 X1000 (0.0-0.04); IMM GRAN% 1.4 % (0.0-0.5); LYMPH# 0.85 X1000 (1.2-3.4); LYMPH% 13.4 % (20.5-51.1); MCH 35.1 PG (27-31); MCHC 34.6 g/dL (33-37); MCV 101.6 FL (81-99); MONO# 1.02 X1000 (0.11-0.59); MONO% 16.1 % (1.7-9.3); MPV 12.4 FL (7.4-10.4); NEUT# 4.31 X1000 (1.4-6.5); PLT 64 X1000 (130-400); RBC 3.16 XMIL (4.7-6.1); RDW 15.6 % (11.5-14.5); WBC 6.34 X1000 (4.8-10.8)
[2018-11-18 07:11] LABS: LYMPHS 22 % (21-51); MONO 2 % (1-9); SEGS 76 % (42-75)
[2018-11-18 07:14] LABS: AGAP 11; ALBUMIN 2.7 g/dL (3.5-5.0); ALKALINE PHOSPHATASE 114 U/L (32-122); BUN 8 mg/dL (8-22); CALCIUM 7.9 mg/dL (8.8-10.2); CHLORIDE 101 mmol/L (98-107); COSMO 278; CREATININE 0.5 mg/dL (0.7-1.2); ESTIMATED GFR > 60; GLUCOSE 175 mg/dL (70-104); GOT 285 U/L (10-34); GPT 79 U/L (10-44); MAGNESIUM 2.2 mg/dL (1.5-2.7); POTASSIUM 3.1 mmol/L (3.5-5.1); SODIUM 138 mmol/L (136-145); TCO2 26 mmol/L (25-35); TOTAL BILIRUBIN 19.04 mg/dL (0.20-1.00); TOTAL PROTEIN 5.5 g/dL (6.3-8.3)
[2018-11-18 07:15] LABS: PHOSPHORUS 0.7 mg/dL (2.7-4.5)
[2018-11-18] MEDS ORDERED: POTASSIUM PHOSPHATE 40 MMOL in NS 250 ML IV ONE (07:18)
[2018-11-18] MEDS: LACTULOSE PO SCH ×3 (09:51→18:20)
[2018-11-18] MEDS: KEPPRA PO SCH ×2 (09:51→20:04)
[2018-11-18] MEDS: TRENTAL PO SCH ×3 (09:51→18:20)
--- NOTE | 2018-11-18 10:41 | GASTROENTEROLOGY PROGRESS NOTE ---
DATE: 11/18/2018 SUBJECTIVE: Patient is resting in bed. He is slightly confused today. His ammonia was checked today, which is slightly high at 68. He has eaten few bites this morning. He has moved his bowels two days ago. His abdomen is slightly distended. He also does complain of discomfort in the abdomen. OBJECTIVE: Vital signs: Temperature 97.6 degrees, pulse of 77, respiratory 20, blood pressure 109/75, saturating 92% on room air. General Appearance: Moderately built, moderately nourished, lying in bed, currently a little sleepy. Was able to wake up on commands. Answers all questions. Positive pallor. Icteric sclerae. Icteric skin. Neck: Supple. Abdomen: Distended, question of ascites. No rebound or guarding. Extremities: No cyanosis or clubbing. Neurologic: He was sleepy. He was able to awake on command. Answers questions. He was disoriented to place. Was oriented to time and person. LABS: His hemoglobin and hematocrit is 11.1 and 32.1, white count of 6.34, platelet count of 64. INR 1.29, PT of 17.1, PTT of 40.9. Sodium 138, potassium 3.1, chloride 101, bicarb at 26, anion gap of 11, BUN of 8, creatinine 0.5, glucose of 135, calcium is 7.9, phosphorus 0.7, magnesium 2.2, total bilirubin is 19.04. AST 285, ALT 79, alkaline phosphatase is 114. Ammonia was 68. Total protein 5.5, albumin of 2.7. CA-19-9 was high at 693. Hepatitis panel positive hepatitis C antibody. PCR is currently pending. IMPRESSION AND PLAN: 1. Hepatic encephalopathy and elevated ammonia. We will keep her on lactulose 30 mL p.o. t.i.d. We will start on Xifaxan 550 mg p.o. b.i.d. 2. Abdominal distention. We need to evaluate for ascites. Today, the patient is scheduled for MRI and MRCP of the abdomen, and this can probably help us figure out where the abdominal distention is, because of ileus or ascites. 3. Elevated CA-19-9. Will check on magnetic resonance cholangiopancreatography, which was ordered for today. 4. Alcoholic hepatitis. Elevated bilirubin. 5. Thrombocytopenia. 6. Hypoalbuminemia. 7. Mild coagulopathy. This is part of the disease spectrum of chronic alcoholic liver disease. We will keep on daily liver enzyme checkups and keep him on pentoxifylline 400 p.o. t.i.d. 8. Alcoholism. Watch for delirium tremens. He is on Librium. His drowsiness can also be the Librium. This is day 3. We may have to cut down the dose and frequency of Librium. This is managed by the primary team. 9. He will continue on vancomycin once daily and thiamine once daily. His phosphorus will need to be replaced, and this is being done by the primary team. 10. Diverticulosis of the colon, aware. 11. Back pain. Aware. 12. The above plan of care was discussed with the patient and nursing staff. All questions were answered. Please call with any further questions. cc: MD Oleg Salter MD
--- NOTE | 2018-11-18 11:50 | PROGRESS NOTE ---
DATE: 11/18/2018 SUBJECTIVE: No big changes compared with yesterday. He is still sleepy, but arousable. He is answering most of my questions. He is not oriented to time today. He is following commands, and he has been tolerating a little bit better his diet. Hepatitis panel showed that this patient is positive for hepatitis C antibody. His CA 19-9 antigen is high. His potassium is still low, but we will replace it. Phosphorus level is also low, and I requested potassium phosphate for this patient. We will repeat a BMP and phosphorus today in the afternoon around 4 p.m. He is scheduled today to get an MRI of the abdomen because his CA 19-9 was elevated, and they will perform an MRCP to evaluate the possibility of hepatobiliary or pancreatic pathology. OBJECTIVE: Vital Signs: Temperature 97.6 degrees, pulse 77, respiratory rate 20, blood pressure 109/75, oxygen saturation 96% on room air. HEENT: Head normocephalic. No trauma. PERRLA. Icteric sclerae. Neck: Supple. No JVD. No masses. Central trachea. Chest: Clear to auscultation. No wheezing. No rales. Abdomen: Soft, protuberant. Moderately distended. Positive bowel sounds. Possible ascites. Extremities: No edema. No clubbing. No cyanosis. Neurological: The patient is sleepy, but arousable. Oriented x2. He is not oriented to time. He follows commands more consistently. LABORATORY DATA: WBC 6.3, hemoglobin 11.1, hematocrit 32.1, platelets 64,000. Sodium 138, potassium 3.1, chloride 101, bicarbonate 26, BUN 8, creatinine 0.5, glucose 175, calcium 7.9, phosphorus 0.7, magnesium 2.2, total bilirubin 19, AST 285, ALT 79, alkaline phosphatase, 114, ammonia level is 68, albumin 2.7. ASSESSMENT AND PLAN: 1. Likely hepatic encephalopathy. As per the patient's brother, he is a heavy drinker. He is not only drinking beer, but also other drinks like vodka. He has been living with his brother for about 5 years, and since then he has been drinking on a daily basis. His jaundice, bilirubin, as well as AST and ALT are elevated, ammonia level as well. We have a positive result that showed the CA 19-9 antigen elevated. We will get an MRI and MRCP today. 2. Positive result for hepatitis C. Gastroenterology Department following this patient closely. 3. Alcoholic hepatitis with possible liver cirrhosis. We will do an MRI today to rule out liver cirrhosis. Continue with the same management, especially the banana bag. Gastroenterology on board. 4. Positive result that showed CA 19-9 elevation, aware. Pending MRI/MRCP. 5. Thrombocytopenia, likely secondary to liver injury. 6. Chronic back pain Apparently, as per the brother, he has some degenerative disease. He has been placed on morphine as needed. 7. Possible alcohol withdrawal symptoms. This patient has been placed on Librium, which I have decreased the dose from 25 every 6 hours to 25 twice a day. Hopefully, we will decrease that slowly. 8. Elevated liver enzymes, aware. 9. Elevated bilirubin, aware. 10. Elevated ammonia level, aware. 11. Hyponatremia, resolved. 12. Hypokalemia with hypophosphatemia. I will give him potassium phosphate, and I will recheck the lab work in the afternoon. cc: Oleg Lorenzana MD
[2018-11-18] MEDS: THIAMINE 100 MG in NS 50 ML IV SCH (15:25)
[2018-11-18] MEDS: M.V.I.-12 10 ML, FOLIC ACID 1 MG, MAGNESIUM SULFATE 1 GM, THIAMINE 100 MG in NS 1,000 ML IV SCH (16:12)
[2018-11-18 16:36] LABS: AGAP 15; BUN 7 mg/dL (8-22); CALCIUM 8.1 mg/dL (8.8-10.2); CHLORIDE 99 mmol/L (98-107); COSMO 274; CREATININE 0.4 mg/dL (0.7-1.2); ESTIMATED GFR > 60; GLUCOSE 132 mg/dL (70-104); PHOSPHORUS 1.3 mg/dL (2.7-4.5); POTASSIUM 3.1 mmol/L (3.5-5.1); SODIUM 137 mmol/L (136-145); TCO2 23 mmol/L (25-35)
[2018-11-18] MEDS: ATIVAN IV PRN (21:25)
[2018-11-19] MEDS: LIBRIUM PO SCH ×4 (00:47→22:38)
[2018-11-19] MEDS: PROTONIX IV SCH ×2 (02:17→13:48)
[2018-11-19] MEDS: ZOSYN 3.375 GM in NS 50 ML IV SCH ×4 (02:17→20:43)
[2018-11-19] MEDS: SODIUM CHLORIDE 0.9% INJ SCH (02:17)
[2018-11-19] MEDS: D5 NS 1,000 ML IV SCH ×2 (02:23→13:48)
[2018-11-19 07:15] LABS: BASO# 0.01 X1000 (0.0-0.2); BASO% 0.1 % (0.0-0.8); EOS# 0.02 X1000 (0.0-0.7); EOS% 0.2 % (0.0-10.0); HEMOGLOBIN 11.3 g/dL (14.0-18.0); IMM GRAN% 1.1 % (0.0-0.5); LYMPH# 0.81 X1000 (1.2-3.4); LYMPH% 8.9 % (20.5-51.1); MCHC 34.2 g/dL (33-37); MCV 102.2 FL (81-99); MONO# 1.15 X1000 (0.11-0.59); MONO% 12.6 % (1.7-9.3); NEUT# 7.02 X1000 (1.4-6.5); NEUT% 77.1 % (42.2-75.2); PLT 65 X1000 (130-400); RBC 3.23 XMIL (4.7-6.1); RDW 16.1 % (11.5-14.5); WBC 9.11 X1000 (4.8-10.8)
[2018-11-19 07:23] LABS: HCV BY PCR SEE COMMENTS
[2018-11-19 07:56] LABS: AGAP 15; ALBUMIN 2.7 g/dL (3.5-5.0); ALKALINE PHOSPHATASE 121 U/L (32-122); BUN 6 mg/dL (8-22); CALCIUM 7.4 mg/dL (8.8-10.2); CHLORIDE 103 mmol/L (98-107); COSMO 277; CREATININE 0.4 mg/dL (0.7-1.2); ESTIMATED GFR > 60; GLUCOSE 97 mg/dL (70-104); GOT 289 U/L (10-34); GPT 83 U/L (10-44); MAGNESIUM 2.2 mg/dL (1.5-2.7); PHOSPHORUS 1.1 mg/dL (2.7-4.5); POTASSIUM 3.5 mmol/L (3.5-5.1); SODIUM 140 mmol/L (136-145); TCO2 22 mmol/L (25-35); TOTAL BILIRUBIN 19.41 mg/dL (0.20-1.00); TOTAL PROTEIN 5.4 g/dL (6.3-8.3)
[2018-11-19] MEDS: KEPPRA PO SCH ×2 (09:54→20:44)
[2018-11-19] MEDS: LACTULOSE PO SCH ×3 (09:54→20:43)
[2018-11-19] MEDS: TRENTAL PO SCH ×3 (09:54→20:44)
[2018-11-19] MEDS: MORPHINE IV PRN ×3 (09:54→22:42)
--- NOTE | 2018-11-19 10:00 | GASTROENTEROLOGY PROGRESS NOTE ---
DATE: 11/19/2018 SUBJECTIVE: No acute overnight events. Afebrile. Patient denies N/V/F, CP. He reports labored breathing, generalized weakness, and abdominal discomfort from distension. He had two nonbloody bowel movements yesterda. OBJECTIVE: Vital Signs: Temperature 97.6, heart rate 79, respiratory rate 18, blood pressure 85/59, O2 saturation 98% on room air GEN: awake, alert, oriented to self and place only, ill-appearing HEENT: icteric sclera, MMM NECK: no JVD or LAD CV: RRR, no murmurs PULM: increased WOB, CTA anteriorly ABD: distended, no tympany, BS present, bulging flanks, unable to appreciate fluid wave. mild diffuse TTP without rebound or guarding EXT: no c/c/e NEURO: moving all extremities symmetry, II-XII grossly intact, no asterixis SKIN: jaundiced LABS: Na 140 K 3.5 CO2 22 Cl 103 BUN 6 Cr 0.4 glucose 97 WBC 9.1 Hgb 11.3 plts 65K INR 1.29 Albumin 2.7 Tpro 5.4 Tbili 19.4 AST 289 ALT 83 ALP 121 A/P: Mr. Kalpesh Osorio is a 52 year old man with history of alcoholism admitted with newly diagnosed decompensated cirrhosis c/b hepatic encephalopathy and jaundice. He also appears to have a component of alcoholic hepatitis. Imaging on admission showed gallbladder sludge, splenomegaly, gastric varices, and minimal ascites. His Tbili continues to uptrend. No CBD dilation on CT or US. MRI/MRCP ordered Unclear indication for zosyn; recommend discontinuing antibiotics #Decompensated cirrhosis: MELD-Na 20, CP-C11 - Ascites: minimal on imaging; low Na diet - PSE: controlled on lactulose; titrate for 2-3 BMs daily; hold for >4 - HCC: US and CT negative for hepatoma; repeat q6mo; elevated CA19-9 MRI pending - EV: gastric varices on CT; will need EGD for varices screening; this can be done prior to discharge - OLT: not a candidate for OLT at his this time given recent alcohol use - IMM: recommend checked HAV/HBV IgG as outpatient; vaccinate if negative #Alcoholic hepatitis - On trental for renal protection - recommend high protein calorie diet; watch for refeeding syndrome #ETOH abuse - thiamine, folate, MVI - continue to career counselor on alcohol cessation #Thrombocytopenia: 2/2 to splenomegaly/cirrhosis #Anemia: stable; no overt bleeding; holding PPI given increase risk for cdiff and SBP #HCV: untreated Will follow with you. Please call with questions. ILIANA
[2018-11-19] MEDS ORDERED: SODIUM PHOSPHATE 35 MMOL in NS 250 ML IV ONE (13:59)
[2018-11-19] MEDS: ATIVAN IV PRN ×2 (15:12→22:04)
--- NOTE | 2018-11-19 15:35 | PROGRESS NOTE ---
DATE: 11/19/2018 SUBJECTIVE: The patient continues to be sleepy but arousable. Not oriented in time or place but in person only. Follows basic commands. OBJECTIVE: Vital Signs: Temperature 97.6 degrees, heart rate 86, respiratory rate 18, blood pressure 122/71, O2 saturation 97% on room air. General: This is a 52-year- old male, chronically ill-looking, very malnourished, lying in bed, in no acute distress. HEENT: Head is normocephalic, atraumatic. Mucous membranes dry. Very icteric. Conjunctivae pale, as well. Neck: No JVD noted. No carotid bruits. No lymphadenopathy. No thyromegaly. Cardiovascular: S1, S2 heard. No murmurs, gallops, or rubs. Regular rate and rhythm. Abdomen : Soft. Protuberant with moderate ascites. No organomegaly noted. Extremities: No clubbing, cyanosis, or edema. Peripheral pulses present in both legs. Neurological: Patient is sleepy, but arousable. Oriented to person only. Follows basic commands. LABORATORY DATA: White cell count 9.7, hemoglobin 11.3, hematocrit 33.0, platelets 65,000. BMP remarkable for creatinine 2.4, glucose 154, total bilirubin 19.41, AST 289, ALT 83. Phosphorus is 1.1. ASSESSMENT AND PLAN: 1. Hepatic encephalopathy. The patient is on lactulose and pentoxifylline. I think we will add rifaximin to his current treatment. 2. Hepatitis C. Gastroenterology following this patient. 3. Alcoholic hepatitis with liver cirrhosis. We were supposed to do an MRI of the abdomen yesterday, but apparently that exam was canceled because the patient was not cooperating. We have talked to him, and he said that he is going to try again. We will see what happens. 4. Thrombocytopenia related to alcoholic liver cirrhosis. We will continue to monitor his CBC. 5. Positive CA19-9 elevation. MRI and MRCP pending. 6. Hepatic encephalopathy. Ammonia level is elevated so we will continue with lactulose and rifaximin. 7. Hyponatremia, resolved. DISPOSITION: We will see what the MRI shows. We will follow recommendations from Gastroenterology. Addendum: We tried to get an MRI for second time. We used 2 dosis of Ativan IV to keep him calmed down but we were not successful. I am not going to try to get that exam done again. cc: Brian Ramachandran MD MTDD
[2018-11-19] MEDS ORDERED: ATIVAN IV ONE (15:37)
[2018-11-19] MEDS: THIAMINE 100 MG in NS 50 ML IV SCH (16:12)
[2018-11-19] MEDS: M.V.I.-12 10 ML, FOLIC ACID 1 MG, MAGNESIUM SULFATE 1 GM, THIAMINE 100 MG in NS 1,000 ML IV SCH (17:08)
[2018-11-19] MEDS: NEUTRA-PHOS PO SCH ×2 (18:22→20:44)
[2018-11-19] MEDS: XIFAXAN PO SCH (20:44)
[2018-11-19] MEDS: ZOFRAN IV PRN (23:18)
[2018-11-20] MEDS: D5 NS 1,000 ML IV SCH ×2 (00:43→12:10)
[2018-11-20] MEDS: ATIVAN IV PRN (02:41)
[2018-11-20] MEDS: ZOSYN 3.375 GM in NS 50 ML IV SCH (02:41)
[2018-11-20 06:22] LABS: HEMATOCRIT 31.6 % (42.0-52.0); HEMOGLOBIN 10.8 g/dL (14.0-18.0); MCH 35.3 PG (27-31); MCHC 34.2 g/dL (33-37); MCV 103.3 FL (81-99); MPV 12.3 FL (7.4-10.4); RBC 3.06 XMIL (4.7-6.1); RDW 16.6 % (11.5-14.5); WBC 10.67 X1000 (4.8-10.8)
[2018-11-20 06:42] LABS: AGAP 11; ALB/GLOB RATIO 0.9; ALBUMIN 2.6 g/dL (3.5-5.0); ALKALINE PHOSPHATASE 122 U/L (32-122); BUN 6 mg/dL (8-22); CALCIUM 7.8 mg/dL (8.8-10.2); CHLORIDE 106 mmol/L (98-107); COSMO 283; CREATININE 0.6 mg/dL (0.7-1.2); ESTIMATED GFR > 60; GLUCOSE 108 mg/dL (70-104); GOT 286 U/L (10-34); GPT 91 U/L (10-44); POTASSIUM 3.1 mmol/L (3.5-5.1); SODIUM 143 mmol/L (136-145); TCO2 26 mmol/L (25-35); TOTAL PROTEIN 5.5 g/dL (6.3-8.3)
[2018-11-20 07:07] LABS: TOTAL BILIRUBIN 20.37 mg/dL (0.20-1.00)
--- NOTE | 2018-11-20 08:51 | GASTROENTEROLOGY PROGRESS NOTE ---
DATE: 11/20/2018 SUBJECTIVE: No acute overnight events. Afebrile. Patient unable to stay still for MRCP. No N/V, CP. +SOB. Good UOP. BMs+ OBJECTIVE: Vital Signs: Temperature 98.2, heart rate 73, respiratory rate 20, blood [id number]/79. O2 saturation 99% on room air. GEN: awake, alert, oriented to self and place only, ill-appearing HEENT: icteric sclera, MMM NECK: no JVD or LAD CV: RRR, no murmurs PULM: increased WOB, CTA anteriorly ABD: distended, tense, no tympany, BS present, bulging flanks, unable to appreciate fluid wave. mild diffuse TTP without rebound or guarding EXT: no c/c/e NEURO: moving all extremities symmetry, II-XII grossly intact, minimal asterixis SKIN: jaundiced LABS: Na 143 K 3.1 CO2 26 Cl 66 BUN 6 Cr 0.6 WBC 10.6 Hgb 10.8 plts 74K Albumin 2.6 Tpro 5.5 Tbili 20.3 AST 286 ALT 91 ALP 122 A/P: Mr. Kalpesh Osorio is a 52 year old man with history of alcoholism admitted with newly diagnosed decompensated cirrhosis c/b hepatic encephalopathy and jaundice. He also has severe alcoholic hepatitis. Imaging on admission showed gallbladder sludge, splenomegaly, gastric varices, and minimal ascites. His Tbili appears to be plateauing. No CBD dilation on CT or US. Unable to tolerate MRI/MRCP. #Decompensated cirrhosis: MELD-Na 20, CP-C11 - daily LFTs, INR to calculate MELD - Ascites: minimal on initial imaging; low Na diet; will obtain another US to assess for new ascites - PSE: mild; on rifaximin and lactulose; titrate for 2-3 BMs daily; hold for >4 - HCC: US and CT negative for hepatoma; repeat q6mo; elevated CA19-9 MRI pending - EV: gastric varices on CT; will need EGD for varices screening; this can be done prior to discharge - OLT: not a candidate for OLT at his this time given recent alcohol use - IMM: recommend checked HAV/HBV IgG as outpatient; vaccinate if negative #Alcoholic hepatitis - On trental for renal protection - recommend high protein calorie diet; watch for refeeding syndrome - stopped antibiotics as there is no obvious source of infection #ETOH abuse - thiamine, folate, MVI - continue to developmental training counselor on alcohol cessation #Thrombocytopenia: 2/2 to splenomegaly/cirrhosis #Anemia: stable; no overt bleeding; holding PPI given increase risk for cdiff and SBP #HCV: untreated Will follow with you. Please call with questions. CANDICED
[2018-11-20] MEDS: XIFAXAN PO SCH ×2 (09:44→21:09)
[2018-11-20] MEDS: NEUTRA-PHOS PO SCH ×4 (09:44→21:09)
[2018-11-20] MEDS: LACTULOSE PO SCH ×2 (09:44→13:12)
[2018-11-20] MEDS: LIBRIUM PO SCH ×2 (09:44→21:09)
[2018-11-20] MEDS: TRENTAL PO SCH ×3 (09:44→16:12)
[2018-11-20] MEDS: KEPPRA PO SCH ×2 (09:44→21:09)
[2018-11-20] MEDS: MORPHINE IV PRN ×3 (12:06→23:51)
[2018-11-20] MEDS ORDERED: SODIUM PHOSPHATE 35 MMOL in NS 250 ML IV ONE (12:19)
[2018-11-20] MEDS: THIAMINE 100 MG in NS 50 ML IV SCH ×2 (13:13→13:19)
--- NOTE | 2018-11-20 14:07 | PROGRESS NOTE ---
DATE: 11/20/2018 SUBJECTIVE: Patient continues to be confused, but more oriented at times. He is not oriented to time and place only to person. He follows basic commands. OBJECTIVE: Vital Signs: Temperature 98.3 degrees, heart rate 82, respiratory rate 18, and blood pressure 125/76. O2 saturation 98% on room air. General: This is a chronically ill looking and disheveled 52-year-old male lying in bed in no acute distress. HEENT : Head is normocephalic and atraumatic. Mucous membranes dry. Very icteric sclerae, and icteric face and chest. Neck: No JVD noted. No carotid bruits. No lymphadenopathy. No thyromegaly. Cardiovascular: S1, S2 heard. No murmurs, gallops, or rubs. Regular rate and rhythm. Respiratory: Clear bilaterally to auscultation. No work of breathing or using accessory muscles. Abdomen: Soft and protuberant with moderate signs. No organomegaly. No tenderness. Extremities: No clubbing, cyanosis, or edema. Peripheral pulses present in both legs. Neurological: Patient appears to be confused and sleepy. Responds to verbal stimuli. Oriented to person only and follows basic commands. LABORATORY DATA: White cell count 10.67, hemoglobin 10.8, hematocrit 31.6 and platelets 74,000. BMP remarkable for potassium 3.1. Phosphorus 2.0. Magnesium from yesterday 2.2. ASSESSMENT AND PLAN: 1. Decompensated alcoholic liver cirrhosis. The patient actually is not improving. Her liver function tests continue to be getting higher with total bilirubin that is getting in the range of 20's today. For further evaluation of the abdomen and the abdominal anatomy, we have ordered a MRCP but unfortunately the patient failed it for a second time to have this exam done. At this point, we will continue to monitor this patient closely. 2. Alcoholic hepatitis. The patient is on Trental. We will continue with the same medication. 3. Hepatic encephalopathy. Patient is on lactulose and rifaximin, but unfortunately that is not helping. We will continue to monitor. 4. Thrombocytopenia related to alcohol liver cirrhosis. Stable. No signs of overt bleeding. We will continue to monitor. 5. Alcohol abuse. Patient is on intravenous thiamine and folate. 6. Disposition. At this point, I do not think this patient is going to improve. I think we will need to go with palliative care and talk with the family to establish care. In the meantime, we will continue with the same active treatment for him. cc: Brian Ramachandran MD MTDD
--- NOTE | 2018-11-20 14:49 | Diag Imaging Result Doc PS360 ---
US GB < RUQ (LIMITED) - 11/20/2018 INDICATION: assess for ascites TECHNIQUE: COMPARISON: 11/14/2018 FINDINGS: There is trace ascites, certainly not enough to aspirate. This is very similar to the prior CT from 11/14/2018. IMPRESSION: Trace ascites. Electronically signed by Benedict Bustos 11/20/2018 2:47 PM
[2018-11-20] MEDS: M.V.I.-12 10 ML, FOLIC ACID 1 MG, MAGNESIUM SULFATE 1 GM, THIAMINE 100 MG in NS 1,000 ML IV SCH (16:12)
[2018-11-21 06:49] LABS: HEMATOCRIT 32.9 % (42.0-52.0); HEMOGLOBIN 11.2 g/dL (14.0-18.0); MCH 35.2 PG (27-31); MCV 103.5 FL (81-99); MPV 12.8 FL (7.4-10.4); RBC 3.18 XMIL (4.7-6.1); RDW 17.5 % (11.5-14.5); WBC 11.6 X1000 (4.8-10.8)
[2018-11-21 06:50] LABS: INR 1.44; PROTIME 18.6 Seconds (11.0-16.0)
[2018-11-21 07:25] LABS: AGAP 12; ALBUMIN 2.8 g/dL (3.5-5.0); ALKALINE PHOSPHATASE 130 U/L (32-122); BUN 8 mg/dL (8-22); CALCIUM 7.3 mg/dL (8.8-10.2); CHLORIDE 109 mmol/L (98-107); COSMO 289; CREATININE 0.7 mg/dL (0.7-1.2); ESTIMATED GFR > 60; GLUCOSE 104 mg/dL (70-104); GOT 281 U/L (10-34); GPT 92 U/L (10-44); PHOSPHORUS 2.5 mg/dL (2.7-4.5); POTASSIUM 3.1 mmol/L (3.5-5.1); SODIUM 146 mmol/L (136-145); TCO2 25 mmol/L (25-35); TOTAL PROTEIN 5.6 g/dL (6.3-8.3)
[2018-11-21 07:27] LABS: TOTAL BILIRUBIN 21.15 mg/dL (0.20-1.00)
[2018-11-21] MEDS: LACTULOSE PO SCH ×4 (07:28→16:39)
[2018-11-21] MEDS: D5 NS 1,000 ML IV SCH ×2 (07:47→16:37)
[2018-11-21] MEDS: MORPHINE IV PRN ×2 (07:47→14:22)
[2018-11-21] MEDS: NEUTRA-PHOS PO SCH ×4 (10:02→21:21)
[2018-11-21] MEDS: KEPPRA PO SCH ×2 (10:03→21:20)
[2018-11-21] MEDS: LIBRIUM PO SCH ×2 (10:03→23:39)
[2018-11-21] MEDS: XIFAXAN PO SCH ×2 (10:03→21:20)
[2018-11-21] MEDS: TRENTAL PO SCH ×3 (10:03→16:36)
[2018-11-21] MEDS ORDERED: VITAMIN K 10 MG in NS 50 ML IV ONE (10:28)
[2018-11-21] MEDS: THIAMINE 100 MG in NS 50 ML IV SCH (14:06)
--- NOTE | 2018-11-21 14:18 | PROGRESS NOTE ---
DATE: 11/21/2018 SUBJECTIVE: Patient continues to be confused. Patient is oriented in time, place and only person. OBJECTIVE: Vital Signs: Temperature 97.9 degrees, heart rate 74, respiratory rate 20, blood pressure 108/49, and O2 saturation 92% on room air. General: This is a chronically ill-looking, very icteric frail 53-year-old male looking older than his stated age lying in bed in no acute distress. HEENT: Head is normocephalic, atraumatic. Mucous membranes dry. Very icteric sclerae. Neck: No JVD noted. No carotid bruits. No lymphadenopathy. No thyromegaly. Cardiovascular: S1, S2 heard. No murmurs, gallops, or rubs. Regular rate and rhythm. Respiratory: Clear bilaterally to auscultation. No work of breathing or using accessory muscles. Abdomen: Soft, protuberant. No signs of peritoneal irritation. No organomegaly noted. No tenderness to palpation. Extremities: No clubbing, cyanosis, or edema. Peripheral pulses present in both legs. Neurological: Patient continues to be confused and sleepy, but responds to verbal stimuli. Oriented to person only. Follows basic commands. Moves all 4 extremities spontaneously. LABORATORY DATA: White cell count 11.6, hemoglobin 11.2, hematocrit 32.9, and platelets 82,000. Sodium 146, potassium 3.1, glucose 104, and total bilirubin 21.15. ASSESSMENT AND PLAN: 1. Decompensated alcoholic liver cirrhosis. 2. Alcoholic hepatitis. 3. Hepatic encephalopathy. 4. Thrombocytopenia related to alcohol liver cirrhosis. 5. Alcohol abuse. PLAN: The patient unfortunately is in end stage liver disease. Unfortunately, despite our efforts to helping to improve, I think he continues to be basically the same on some labs like the bilirubin is getting higher. I had a long conversation with brother, and he reported to me that the patient does not talk to him stating he does not want to have any chest compressions or intubation, or to be connected to machine to prolong his life. At this point, we are changing the status to DNR 1. Regarding prognosis, I talked to him and said that unfortunately his condition is terminal. We were suspecting also tumor that could be coming from the pancreas or the liver, but we were not able to do an MRCP because he was not cooperative. Brother agreed to have hospice at home. Palliative care nurse Magda has been consulted. We are going to contact one of the hospice company's assuming when everything is set up, and then we will send this patient home. In the meantime, we will continue with the same management. cc: Brian Ramachandran MD
--- NOTE | 2018-11-21 17:20 | GASTROENTEROLOGY PROGRESS NOTE ---
DATE: 11/21/2018 SUBJECTIVE: Resting in bed. He is drowsy. He received morphine at just after 7 a.m. He also has alcoholic liver disease. His bilirubin is trending up. His INR is also trending up. His platelets are stable. I spoke to the patient's nurse and the patient was drowsy. OBJECTIVE: Vital signs: Temperature 97.9 degrees, pulse rate of 72, respiratory rate 20, blood pressure 108/49, saturating 92% on room air. General Appearance: Moderately nourished, lying in bed, in no acute distress. HEENT: Icteric sclerae. Pale conjunctivae. Neck: Supple. Abdomen: Distended, tympanic on percussion. No guarding. Extremities: No cyanosis or clubbing. Neurological: He was sedated. He will respond to noxious stimuli. Would not answer any questions. DIAGNOSTIC STUDIES: Hemoglobin 11.2, hematocrit 32.9, white count of 11.6, platelet count of 82,000. INR 1.448, PT of 18.6. Sodium 146, potassium 3.1, chloride 109, bicarbonate 25, anion gap 12, BUN of 8, creatinine 0.7, glucose 104, calcium is 7.3, phosphorus 2.5. Total bilirubin is 21.15, AST 281, ALT 92, alkaline phosphatase 130, total protein 5.6, albumin of 2.8. Ammonia level yesterday was 46. Alpha 1 trypsin level was 315 normal. A normal high ceruloplasmin level done yesterday was 27.7. His ELVIRA was negative. Antimitochondrial antibody is less than 0.1. Antismooth muscle antibody was negative. His hepatitis C was reactive antibody, but the PCR was showing not detected. Ultrasound was done yesterday, which showed trace ascites, certainly not enough to aspirate. IMPRESSION AND PLAN: 1. Decompensated cirrhosis, likely secondary to alcoholic liver disease. We will continue supportive treatment. We will continue watch his labs. He is definitely showing deterioration in his labs with worsening bilirubin and INR. 2. Coagulopathy. We will give him a dose of vitamin K. 3. Ascites, very minimal. Continue watch for now. 4. Hepatic encephalopathy. Continue on Xifaxan and lactulose. 5. Alcoholic hepatitis. Continue on pentoxifylline t.i.d. 6. Alcoholism. We will continue on thiamine, folate, and multivitamin. 7. Thrombocytopenia, stable. 8. Anemia. Continue to watch for now. 9. Gastrointestinal (GI) prophylaxis. PPIs. 10. Positive hepatitis C antibody with negative PCR, previously exposed likely. He is also on Librium 25 mg p.o. b.i.d. for alcohol withdrawal. 11. Because of the leukocytosis, we will hold off on using prednisolone for alcoholic hepatitis. The above plans were discussed with the patient's nurse at bedside, and all questions were answered. Please call us with any further questions. cc: MD Jaron Carlisle MD
[2018-11-21] MEDS: ZOFRAN IV PRN ×2 (17:48→23:40)
[2018-11-21] MEDS: ATIVAN IV PRN (21:21)
[2018-11-22] MEDS ORDERED: CALMOSEPTINE OINTMENT TOP PRN ×2 (03:53→15:25)
[2018-11-22] MEDS: MORPHINE IV PRN ×3 (06:07→21:56)
[2018-11-22] MEDS: ZOFRAN IV PRN ×2 (06:08→17:57)
[2018-11-22] MEDS: D5 NS 1,000 ML IV SCH (06:12)
[2018-11-22 06:32] LABS: HEMATOCRIT 32.7 % (42.0-52.0); HEMOGLOBIN 11.2 g/dL (14.0-18.0); MCH 35.3 PG (27-31); MCHC 34.3 g/dL (33-37); MCV 103.2 FL (81-99); MPV 13.1 FL (7.4-10.4); RBC 3.17 XMIL (4.7-6.1); RDW 17.6 % (11.5-14.5); WBC 12.98 X1000 (4.8-10.8)
[2018-11-22 06:36] LABS: INR 1.35; PROTIME 17.8 Seconds (11.0-16.0)
[2018-11-22 06:53] LABS: ALB/GLOB RATIO 0.9; ALBUMIN 2.5 g/dL (3.5-5.0); CALCIUM 7.7 mg/dL (8.8-10.2); CREATININE 1.4 mg/dL (0.7-1.2); PHOSPHORUS 2.6 mg/dL (2.7-4.5); POTASSIUM 3.1 mmol/L (3.5-5.1); TOTAL PROTEIN 5.2 g/dL (6.3-8.3)
[2018-11-22 07:01] LABS: TOTAL BILIRUBIN 20.74 mg/dL (0.20-1.00)
--- NOTE | 2018-11-22 08:54 | PROVIDER PROGRESS NOTE ---
Progress Note - - SUBJECTIVE: No acute overnight events. Afebrile. No N/V/F, CP, SOB. Patient reports diffuse abdominal discomfort. OBJECTIVE: Last Vital Signs Temp 97.4 F L 11/22/18 07:50 Pulse 80 11/22/18 07:50 Resp 16 11/22/18 07:50 BP 93/63 11/22/18 07:50 Pulse Ox 97 11/22/18 07:50 Height 5 ft 7 in Weight 155 lb 4 oz GEN: awake, alert, AAOx2 not to date, chronic ill-appearing HEENT: icteric, dryMM NECK: no jvd, lad CV: RRR, no mrg PULM: ctab, no wheezing or crackles, labored breathing ABD: distended, tense, BS hypoactive, no appreciable ascites EXT: 2+ LE edema NEURO: mild asterixis LABS: 11/22/18 11/22/18 11/22/18 06:15 06:15 06:15 WBC 12.98 H Hgb 11.2 L Plt Count 85 L INR 1.35 Sodium 147 H Potassium 3.1 L Chloride 108 H Carbon Dioxide 25 BUN 11 Creatinine 1.4 H Calcium 7.7 L Phosphorus 2.6 L Total Bilirubin 20.74 H AST 267 H ALT 90 H Alkaline Phosphatase 136 H Total Protein 5.2 L Albumin 2.5 L RUQ US 11/20/2018 IMPRESSION: Trace ascites. ASSESSMENT/PLAN: Mr. Kalpesh Osorio is a 52 year old man with history of alcoholism admitted with newly diagnosed decompensated cirrhosis c/b hepatic encephalopathy and jaundice. He also has severe alcoholic hepatitis. Imaging on admission showed gallbladder sludge, splenomegaly, gastric varices, and minimal ascites. His Tbili appears to be plateauing. No CBD dilation on CT or US. Unable to tolerate MRI/MRCP. #Decompensated cirrhosis: MELD-Na 24, CP-C11 - daily LFTs, INR to calculate MELD - Ascites: minimal on initial imaging; low Na diet; ascites on US too small to tap - PSE: mild; on rifaximin and lactulose; titrate for 2-3 BMs daily; hold for >4 - HCC: US and CT negative for hepatoma; repeat q6mo; elevated CA19-9 - EV: gastric varices on CT; no overt bleeding - OLT: not a candidate for OLT at his this time given recent alcohol use - IMM: HAV/HBV immunity unknown #Acute kidney injury: suspect prerenal given hypernatremia cannot rule out HRS - recommend albumin IV infusion 50gm BID - trend Cr daily #Alcoholic hepatitis - On trental for renal protection - continue high protein calorie diet - stopped antibiotics as there is no obvious source of infection #ETOH abuse - thiamine, folate, MVI - continue to career technical counselor on alcohol cessation #Thrombocytopenia: 2/2 to splenomegaly/cirrhosis #Anemia: stable; no overt bleeding; holding PPI given increase risk for cdiff and SBP #HCV: untreated Prognosis guarded; Will follow with you. Please call with questions.
[2018-11-22] MEDS: LACTULOSE PO SCH ×3 (08:56→18:03)
[2018-11-22] MEDS: TRENTAL PO SCH ×3 (08:56→17:57)
[2018-11-22] MEDS: KEPPRA PO SCH ×2 (08:57→21:44)
[2018-11-22] MEDS: XIFAXAN PO SCH ×2 (08:57→21:45)
[2018-11-22] MEDS: NEUTRA-PHOS PO SCH ×4 (08:57→21:45)
[2018-11-22] MEDS: LIBRIUM PO SCH ×2 (09:02→21:44)
[2018-11-22] MEDS: ALBUMIN 25% IV SCH ×2 (13:01→21:45)
[2018-11-22] MEDS ORDERED: LASIX IV ONE (13:25)
--- NOTE | 2018-11-22 14:06 | PROGRESS NOTE ---
DATE: 11/22/2018 SUBJECTIVE: The patient continues to be confused. He reports feeling some shortness of breath. No other pertinent information possible to obtain because of his mental status. OBJECTIVE: Vital Signs: Temperature 98.9 degrees, heart rate 89, respiratory rate 16, blood pressure 116/76, O2 saturation 97% on room air. General: This is a chronically ill-looking, 52- year-old male, lying in bed, in no acute distress. HEENT: Head is normocephalic, atraumatic with very icteric sclerae and on chest too. Neck: No JVD noted. No carotid bruit. Cardiovascular: S1, S2 heard. No murmurs, gallops, or rubs. Regular rate and rhythm. Respiratory: Minimal crackles in both pulmonary bases. Patient is not using any accessory muscles. Abdomen: Soft, distended. Mild ascites noted. Extremities: No clubbing, cyanosis, or edema. Peripheral pulses present in both legs. Neurological: Patient is confused, oriented to person only. Does not follow any commands today. Moves 4 extremities spontaneously. LABORATORY DATA: Reviewed. ASSESSMENT: 1. Decompensated alcoholic liver cirrhosis. 2. Alcoholic hepatitis. 3. Hepatic encephalopathy. 4. Thrombocytopenia related to alcoholic liver cirrhosis. 5. Alcohol abuse. PLAN: At this point, we have talked with the brother and he is okay for hospice on this patient. Because patient does not have any insurance, we are working with Palliative Care team to get a hospice company that can take care of him at home. As soon as we get everything arranged, we will let this patient go. cc: Brian Ramachandran MD MTDD
[2018-11-22] MEDS: THIAMINE 100 MG in NS 50 ML IV SCH (14:53)
[2018-11-22] MEDS: ATIVAN IV PRN (17:57)
[2018-11-22] MEDS ORDERED: NS 500 ML ONE (22:09)
[2018-11-22] MEDS: NS 500 ML IV SCH (22:15)
[2018-11-23] MEDS: D5 NS 1,000 ML IV SCH ×2 (01:15→02:07)
[2018-11-23] MEDS: MORPHINE IV PRN ×4 (02:07→23:46)
[2018-11-23] MEDS: ATIVAN IV PRN ×2 (04:52→19:08)
[2018-11-23] MEDS: NS 500 ML IV SCH (04:56)
[2018-11-23 06:32] LABS: INR 1.53; PROTIME 19.6 Seconds (11.0-16.0)
[2018-11-23 06:33] LABS: HEMATOCRIT 31.4 % (42.0-52.0); HEMOGLOBIN 10.5 g/dL (14.0-18.0); MCHC 33.4 g/dL (33-37); MCV 104.7 FL (81-99); MPV 13.6 FL (7.4-10.4); RDW 17.7 % (11.5-14.5); WBC 12.51 X1000 (4.8-10.8)
[2018-11-23 06:50] LABS: ALB/GLOB RATIO 1.9; ALBUMIN 3.6 g/dL (3.5-5.0); CALCIUM 7.8 mg/dL (8.8-10.2); POTASSIUM 2.7 mmol/L (3.5-5.1); TOTAL PROTEIN 5.5 g/dL (6.3-8.3)
[2018-11-23 07:01] LABS: TOTAL BILIRUBIN 20.9 mg/dL (0.20-1.00)
[2018-11-23] MEDS: ALBUMIN 25% IV SCH ×2 (09:05→23:46)
[2018-11-23] MEDS: TRENTAL PO SCH ×3 (10:56→17:46)
[2018-11-23] MEDS: KEPPRA PO SCH ×2 (10:56→20:37)
[2018-11-23] MEDS: XIFAXAN PO SCH ×2 (10:56→20:37)
[2018-11-23] MEDS: LACTULOSE PO SCH ×3 (10:57→17:46)
[2018-11-23] MEDS: NEUTRA-PHOS PO SCH ×4 (10:57→20:37)
[2018-11-23] MEDS: LIBRIUM PO SCH ×2 (11:27→23:10)
--- NOTE | 2018-11-23 14:23 | PROGRESS NOTE ---
DATE: 11/23/2018 SUBJECTIVE: Patient continues to be confused. He is not able to have a coherent conversation with me. OBJECTIVE: Vital Signs: Temperature 95.6 degrees, heart rate 76, respiratory rate 14, blood pressure 109/73, O2 saturation 95% on room air. General examination: This is a chronically ill looking. 52-year-old male, lying in bed in no acute distress. Cardiovascular exam: S1, S2 heard. No murmurs, gallops, or rubs. Regular rate and rhythm. Respiratory exam: Coarse breath sounds noted in both pulmonary bases. Minimal crackles. Patient is not using any accessory muscles or having work of breathing. Abdomen: Soft, but distended. Mild ascites noted. No signs of peritoneal irritation. Extremities: No clubbing, cyanosis, or edema. Peripheral pulses present in both legs. Neurological exam: Patient continues to be confused. Awake, oriented to person only. Does not follow any commands.. Moves 4 extremities spontaneously. ASSESSMENT: 1. Decompensated alcoholic liver cirrhosis. 2. Alcoholic hepatitis. 3. Hepatic encephalopathy. 4. Thrombocytopenia related to alcoholic liver cirrhosis. 5. Alcohol abuse. PLAN: At this time, we are in the middle of trying to arrange hospice at home for this patient. Palliative care also helped us a lot to manage this patient. At this point, we will keep this patient over the weekend. On Sunday, if everything is arranged, then will let him go. cc: Brian Ramachandran MD
[2018-11-23] MEDS: THIAMINE 100 MG in NS 50 ML IV SCH (14:26)
[2018-11-23] MEDS: ZOFRAN IV PRN (19:08)
[2018-11-24] MEDS: NS 500 ML IV SCH ×4 (00:17→13:18)
[2018-11-24] MEDS: MORPHINE IV PRN ×3 (05:26→20:20)
[2018-11-24] MEDS: ATIVAN IV PRN ×4 (06:17→23:42)
[2018-11-24 06:52] LABS: INR 1.61; PROTIME 20.4 Seconds (11.0-16.0)
[2018-11-24 07:08] LABS: ALB/GLOB RATIO 1.7; ALBUMIN 3.7 g/dL (3.5-5.0); CALCIUM 8.6 mg/dL (8.8-10.2); CREATININE 2.6 mg/dL (0.7-1.2); POTASSIUM 2.9 mmol/L (3.5-5.1); TOTAL PROTEIN 5.9 g/dL (6.3-8.3)
[2018-11-24 07:21] LABS: TOTAL BILIRUBIN 22.22 mg/dL (0.20-1.00)
[2018-11-24] MEDS: TRENTAL PO SCH ×4 (08:27→17:05)
[2018-11-24] MEDS: XIFAXAN PO SCH ×2 (08:27→20:20)
[2018-11-24] MEDS: KEPPRA PO SCH ×2 (08:27→20:20)
[2018-11-24] MEDS: LIBRIUM PO SCH ×4 (08:27→23:31)
[2018-11-24] MEDS: NEUTRA-PHOS PO SCH ×5 (08:27→20:21)
[2018-11-24] MEDS: LACTULOSE PO SCH ×4 (08:27→17:04)
[2018-11-24] MEDS: ALBUMIN 25% IV SCH (08:28)
[2018-11-24] MEDS ORDERED: POTASSIUM CHLORIDE 60 MEQ in NS 500 ML IV ONE (10:08)
--- NOTE | 2018-11-24 12:37 | PROGRESS NOTE ---
DATE: 11/24/2018 SUBJECTIVE: Patient has been more confused and it was needed to provide one dose of Ativan for this patient. Now, he is resting comfortably. No other issues noted as per nursing staff overnight. OBJECTIVE: Vital Signs: Temperature degrees 96.2, heart rate 87, respiratory rate 18, blood pressure 115/75, O2 saturation 95% on 15 L via Venturi mask. General Examination: This is a chronically ill-looking, 52-year-old, male, lying in bed, in no acute distress. Cardiovascular Examination: S1 and S2 heard. No murmurs, gallops, or rubs. Regular rate and rhythm. Respiratory Examination: Coarse breath sounds noted in both pulmonary waite. Patient is not using any accessory muscles or having work of breathing. Abdomen: Distended with mild ascites. No signs of peritoneal irritation. Extremities: Mild edema in both lower extremities. Neurological Examination: Patient continues to be sleepy and confused. ASSESSMENT: 1. Decompensated alcoholic liver cirrhosis. 2. New onset renal failure. 3. Alcoholic hepatitis. 4. Hepatic encephalopathy. 5. Thrombocytopenia related to alcoholic liver cirrhosis. 6. Alcohol abuse. PLAN: At this point, we will continue with comfort care measures only. He will receive Ativan because he is agitated. We are awaiting for a hospice company to let us know when this patient is ready. Then he can be discharged from the hospital. cc: Brian Ramachandran MD
[2018-11-24] MEDS: THIAMINE 100 MG in NS 50 ML IV SCH (13:20)
[2018-11-25] MEDS: MORPHINE IV PRN (00:40)
[2018-11-25] MEDS: ALBUMIN 25% IV SCH ×2 (00:42→10:31)
[2018-11-25] MEDS ORDERED: MORPHINE IV PRN (04:24)
[2018-11-25] MEDS: ATIVAN IV PRN (05:29)
[2018-11-25 08:28] VITALS: BP 84/50
[2018-11-25] MEDS: KEPPRA PO SCH (09:52)
[2018-11-25] MEDS: TRENTAL PO SCH (09:52)
[2018-11-25] MEDS: LIBRIUM PO SCH (09:52)
[2018-11-25] MEDS: XIFAXAN PO SCH (09:52)
[2018-11-25] MEDS: LACTULOSE PO SCH (09:53)
[2018-11-25] MEDS: NEUTRA-PHOS PO SCH (09:53)
--- NOTE | 2018-11-25 12:03 | PROGRESS NOTE ---
DATE: 11/25/2018 SUBJECTIVE: The patient is definitely much worse. He is very tachypneic and more confused. OBJECTIVE: Vital Signs: Temperature 97.7 degrees, heart rate 72, respiratory rate 20, blood pressure 94/50, O2 saturation 88% on non-rebreather mask at 100%. General: This is a chronically ill-appearing 52-year-old male, very icteric. Lying in bed, in moderate respiratory distress. Cardiovascular: S1, S2 heard. Tachycardic. Respiratory : Coarse breath sounds noted in both pulmonary waite. The patient is using accessory muscles. Patient is having work of breathing. Abdomen: Distended. No signs of peritoneal irritation. Neurological: Patient is completely unresponsive. ASSESSMENT: 1. Decompensated alcoholic liver cirrhosis. 2. New onset renal failure. 3. Alcoholic hepatitis. 4. Hepatic encephalopathy. 5. Thrombocytopenia related to alcoholic liver cirrhosis. 6. Alcohol abuse. PLAN: At this point, the patient is on comfort care measures only. I think this patient is going to pass away shortly. We will continue to provide home medications to keep him comfortable. PATIENT CODE STATUS: DNR level 1. cc: Brian Ramachandran MD MTDD
--- NOTE | 2018-11-26 01:39 | DISCHARGE SUMMARY ---
ADMISSION DATE: 11/14/2018 DISCHARGE DATE: 11/25/2018 CONSULTATIONS: Dr. Montilla with Gastroenterology. PERTINENT PROCEDURES: 1. Abdomen and pelvis CT. Hepatomegaly with steatohepatitis versus cirrhosis, adenopathy, varices, minimal ascites. No evidence of biliary obstruction. Right inguinal hernia, diverticulosis coli. 2. Abdominal ultrasound, trace ascites. DISCHARGE DIAGNOSES: 1. Decompensated alcoholic liver cirrhosis. 2. New onset renal failure. 3. Alcoholic hepatitis. 4. Hepatic encephalopathy. 5. Thrombocytopenia related to alcoholic liver disease. 6. Alcohol abuse. 7. Code status DNR with comfort measures. The patient was set to be discharged home with hospice today, however, he on 11/25/2018. HOSPITAL COURSE: Mr. Osorio is a 52-year-old male who was admitted to the hospitalist service on 11/14/2018, to [facility] for back pain. He had lab and imaging done that showed evidence of jaundice with a T bilirubin of 17 and elevated liver enzymes, elevated ammonia level, as well as a blood alcohol level of 50. Imaging with a CT of the abdomen and pelvis showed hepatomegaly with steatohepatitis versus cirrhosis, adenopathy in the periportal area, periaortic- celiac area, with the largest periportal node at 19 mm. Minimal ascites. No evidence of biliary obstruction. Right-sided inguinal hernia. Diverticulosis coli. Varices. He was transferred to [facility] for consultations with GI. The patient drinks 4 to 6 beers per day and has been doing so for more than 16 years. His last drink was the day before admission. He denied vomiting blood or passing blood in his stools. Denied any previous history of liver disease. He underwent a chronic liver disease workup as well as monitored his blood counts closely as well as monitor closely for DTs. He was counseled daily to quit alcohol. Unfortunately, Mr. Osorio continued to decline over his hospital stay. He was evaluated by palliative care with the brother and son. They decided to go home with [facility]. He was made a DNR level 1. However, the patient was actively dying on 11/25/2018, and on the same day. Dictated by VIPIN Tapia for Brian Ramachandran MD cc: Brian Ramachandran MD
== END 2018-11-25 12:15 | disposition expired | DRG 442 ==
LOC: P.ED 17:01 → SUATTDRO 22:06 → P.MEDSURG 22:06 → 4N 11-15 19:24
PROVIDERS: ATTEND Internal Medicine
CPT/HCPCS: 71010; 71045; 72110; 74177; 76700; 76705; 80048; 80053; 80074; 80185; 80307; 80320; 80324; 80329; 81001; 82003; 82055; 82103; 82140; 82248; 82390; 82550; 82728; 82948; 83516; 83540; 83550; 83690; 83735; 84100; 84134; 85025; 85027; 85610; 85730; 86038; 86039; 86255; 86301; 87040; 87088; 87522; 93005; 94761; 96360; 96361; 99285; 99291; A9270; C9113; G0480; G6039; G6040; J1940; J2060; J2270; J2405; J2543; J3411; J3430; J3475; J3480; J7030; J7040; J7042; J7050; P9047; Q9967; S0164; XXXXX